=== PATIENT | male | born 1990 | race Caucasian/White ===

== ENCOUNTER 2020-08-29 03:28 | Emergency (ER) | payer MEDICAID ==
[~2020-08-29] VITALS: Ht 188 cm; Wt 68.2 kg
[2020-08-29 03:30] VITALS: BP 126/82
== END 2020-08-29 04:35 | disposition home or self-care (01) ==
LOC: ER 03:29
DX: R07.89 Other chest pain (principal)
CPT/HCPCS: 93005; 99283